=== PATIENT | female | born 1990 | race Caucasian/White ===

== ENCOUNTER 2017-05-23 18:58 | Emergency (ER) | payer BC ==
[~2017-05-23] VITALS: Ht 157.5 cm; Wt 63.5 kg
[2017-05-23 19:30] LABS: HEMATOCRIT 43.8 % (36.0-46.0); MCHC 34.2 G/DL (30.0-36.0); MCV 90.5 FL (83-99); PLATELET COUNT 263 K/uL (156-360); RBC DIS.WIDTH-CV 12.3 % (11.8-14.6); RBC DIS.WIDTH-SD 40.7 % (39-53); RED BLOOD COUNT 4.84 M/uL (3.80-5.20); WHITE BLOOD COUNT 6.3 K/uL (4.1-10.2)
[2017-05-23 19:50] LABS: CHLORIDE 104 mEq/L (99-109); POTASSIUM 4.2 mEq/L (3.7-5.4); SODIUM 135 mEq/L (136-147)
[2017-05-23 19:51] LABS: GLUCOSE 115 mg/dL (70-99)
[2017-05-23 19:55] LABS: CREATININE 0.8 mg/dL (0.6-1.3); GFR ESTIMATE (CALCULATED) > 59 mL/min/
[2017-05-23 19:56] LABS: UREA NITROGEN (BUN) 11 mg/dL (9-23)
[2017-05-23 20:37] LABS: QUANTITATIVE HCG < 4.0 MIU/ML
[2017-05-23 20:42] LABS: ALBUMIN 4.4 g/dL (3.2-4.8)
[2017-05-23 20:45] LABS: TOTAL PROTEIN 7.8 g/dL (6.4-8.3)
[2017-05-23 20:47] LABS: TOTAL BILIRUBIN 0.9 mg/dL (0.0-1.0)
[2017-05-23 20:48] LABS: ALKALINE PHOSPHATASE 64 IU/L (3-129)
[2017-05-23 20:50] LABS: AST (GOT) 15 IU/L (2-34); DIRECT BILIRUBIN 0.3 mg/dL (0.0-0.3)
[2017-05-23 20:51] LABS: ALT (GPT) 11 IU/L (3-49)
[2017-05-23 21:09] LABS: MONOSPOT (MONONUCLEOSIS SEROL) NEGATIVE
[2017-05-23 21:38] LABS: APPEARANCE CLEAR ((CLEAR)); BILIRUBIN NEGATIVE; BLOOD NEGATIVE; COLOR YELLOW ((YELLOW)); GLUCOSE (STRIP) NEGATIVE; KETONES NEGATIVE; LEUKOCYTES NEGATIVE; NITRITE NEGATIVE; PROTEIN (STRIP) NEGATIVE; SPECIFIC GRAVITY 1.013 (1.000-1.030); UROBILINOGEN 0.2 MG/DL (0.2-1.0)
[2017-05-23] MEDS ORDERED: MOTRIN800 MG PO (22:05)
[2017-05-23] MEDS ORDERED: ZOFRAN ODT4 MG PO (22:05)
[2017-05-23 22:37] VITALS: BP 116/66
== END 2017-05-23 22:40 | disposition home or self-care (01) ==
LOC: EME 18:58
PROVIDERS: Nurse Practitioner Family
PROC: 0HQ1XZZ Repair Face Skin, External Approach (ICD-10-PCS; principal; 2017-05-23)
DX: S01.81XA Laceration without foreign body of other part of head, initial encounter (principal); E86.0 Dehydration; R55 Syncope and collapse; W18.2XXA Fall in (into) shower or empty bathtub, initial encounter; Y93.E1 Activity, personal bathing and showering; F12.90 Cannabis use, unspecified, uncomplicated
CPT/HCPCS: 70450; 71046; 80048; 80076; 81003; 84702; 85027; 86308; 87502; 93005; 99281; 99285; J1885; J7030